=== PATIENT | female | born 1990 | race Caucasian/White ===

== ENCOUNTER 2018-04-21 16:40 | Emergency (ER) | payer OTHER ==
[~2018-04-21] VITALS: Ht 170.2 cm; Wt 72.0 kg
[2018-04-21 17:09] VITALS: BP 123/75; PULSE 94; RESP 17; TEMP 98.2; O2SAT 100
[2018-04-21] MEDS ORDERED: LIDOCAINE HCL 2% 50 ML VIAL INFIL ONE (17:45)
[2018-04-21] MEDS ORDERED: oxyCODONE/ACETAMINOPHEN 5 MG/325 MG TAB PO ONE (17:45)
[2018-04-21] MEDS ORDERED: TETANUS/DIPHTHERIA TOXOID ADULT 0.5 ML VIAL IM ONE (17:45)
--- NOTE | 2018-04-21 18:11 | PD ---
Data Data Last Documented VS Vital Signs Date Time Temp Pulse Resp B/P (MAP) Pulse Ox O2 Delivery O2 Flow Rate FiO2 04/21/18 19:52 91 18 117/82 (94) 100 04/21/18 17:[address] Facial Bones W/O Iv Cont (04/21/18 ) Ct Brain W/O Iv Contrast(Rout) (04/21/18 ) Ed Urine Pregnancytest Poc (04/21/18 17:33) Lidocaine 2% Inj (Xylocaine 2% Inj) (04/21/18 17:45) Tetanus/Diphtheria Tox Adult (Tetanus/Di (04/21/18 17:45) Oxycodone-Acetamin 5-325 Mg (Percocet (04/21/18 17:45) Ed Discharge Order (04/21/18 19:46) MDM Supervised Visit with VERONICA: Yes Narrative Course I, Dr. Nunez, have reviewed the advance practice practitioner's documentation and am in agreement, met with the patient face to face, made the diagnosis, and the medical decision making was done by me. *My assessment and Findings: Patient seen and examined by me in addition to Noa Edgar, the patient appears well appears to have a very minor head trauma, laceration was very cleanly approximated by Ms. Jolley. CT examinations negative. She is stable for discharge Last [address] 04/21/18 0000 Signed Impressions: Mucoperiosteal thickening is seen in both maxillary sinuses and posterior ethmo ids extending into the left frontal sinus. Soft tissue swelling about the left orbit without fracture. Zygomatic arch is intact. Mandible and maxilla are inta ct. CONCLUSION: 1. Apparent chronic sinus disease without fracture Head CT 04/21/18 0000 Signed Impressions: CONCLUSION: 1. Negative, facial bone CT pending. Scripts Amoxicillin-Clavulanate (Augmentin) 875-125 Mg Tab 1 TAB PO BID for Infection, #20 TAB 0 Refills Prov: Juan Nunez MD 04/21/18 Acetaminophen-Codeine (Tylenol-Codeine #3) 300-30 mg Tab 1 TAB PO Q4H Y for PAIN, #12 TAB 0 Refills Prov: Noa Jolley DIRECTOR E LEARNING 04/21/18 Juan Nunez MD Apr 21, 2018 18:11
[2018-04-21] MEDS ORDERED: TYLETAB34 PO (18:35)
--- NOTE | 2018-04-21 18:35 | PD ---
HPI Chief Complaint: Laceration/Skin Injury Time Seen by Provider: 17:19 Travel History International Travel<30 days: No Contact w/Intl Traveler<30days: No Traveled to known affect area: No History of Present Illness HPI Patient is a 28-year-old female presenting to the emergency department for evaluation of a head injury. Patient states she slipped getting out of the shower, she fell hitting her head on the floor, she reports a brief loss of consciousness, less than 30 seconds. She states her found her and helped her up. She presents with 5 out of 10 pain to her face. She has 2 lacerations, one to her left upper eyelid and one to her left lower lip. She denies any nausea, dizziness, visual changes. Patient denies any neck pain, back pain, chest pain. She denied feeling dizzy or short of breath prior to falling. She denies any significant past medical history. To him onset was sudden, symptoms are moderate in nature. There are no alleviating factors. PFSH Past Medical History Medical History: Denies Significant Hx Immunizations Current: Yes ?: Not Past Surgical History Section: Yes Social History Alcohol Use: No Tobacco Use: No Substance Use: No Allergies-Medications (Allergen,Severity, Reaction): Coded Allergies: No Known Allergies (Unverified , 04/21/18) Reported Meds & Prescriptions Reported Meds & Active Scripts Active Augmentin (Amoxicillin-Clavulanate) 875-125 Mg Tab 1 Tab PO BID Tylenol-Codeine #3 (Acetaminophen-Codeine) 300-30 mg Tab 1 Tab PO Q4H PRN Review of Systems Except as stated in HPI: all other systems reviewed are Neg HENT: No: Headaches, Neck Pain Cardiovascular: No: Chest Pain or Discomfort Respiratory: No: Shortness of Breath Gastrointestinal: No: Nausea, Abdominal Pain Musculoskeletal: Positive: Edema, Pain Skin: Positive Change in Pigmentation Physical Exam Narrative GENERAL: Well-developed, well-nourished, alert female. Presenting in no acute distress. SKIN: Warm and dry. 2 cm superficial laceration to left upper eyelid, 0.5 cm laceration to the left lower lip HEAD: Edema and mild ecchymosis noted to the left cheek. Normocephalic. EYES: Pupils equal and round. No scleral icterus. No injection or drainage. ENT: No nasal bleeding or discharge. Mucous membranes pink and moist. NECK: Trachea midline. No JVD. CARDIOVASCULAR: Regular rate and rhythm. RESPIRATORY: No accessory muscle use. Clear to auscultation. Breath sounds equal bilaterally. GASTROINTESTINAL: Abdomen soft, non-tender, nondistended. Hepatic and splenic margins not palpable. MUSCULOSKELETAL: Extremities without clubbing, cyanosis, or edema. No obvious deformities. NEUROLOGICAL: Awake and alert. No obvious cranial nerve deficits. Motor grossly within normal limits. Five out of 5 muscle strength in the arms and legs. Normal speech. PSYCHIATRIC: Appropriate mood and affect; insight and judgment normal. Data Data Last Documented VS Vital Signs Date Time Temp Pulse Resp B/P (MAP) Pulse Ox O2 Delivery O2 Flow Rate FiO2 04/21/18 19:52 91 18 117/82 (94) 100 04/21/18 17:[address] Facial Bones W/O Iv Cont (04/21/18 ) Ct Brain W/O Iv Contrast(Rout) (04/21/18 ) Ed Urine Pregnancytest Poc (04/21/18 17:33) Lidocaine 2% Inj (Xylocaine 2% Inj) (04/21/18 17:45) Tetanus/Diphtheria Tox Adult (Tetanus/Di (04/21/18 17:45) Oxycodone-Acetamin 5-325 Mg (Percocet (04/21/18 17:45) Ed Discharge Order (04/21/18 19:46) [facility] Medical Decision Making Medical Screen Exam Complete: Yes Emergency Medical Condition: Yes Interpretation(s) Vital Signs Date Time Temp Pulse Resp B/P (MAP) Pulse Ox O2 Delivery O2 Flow Rate FiO2 04/21/18 17:09 98.2 94 17 123/75 (91) 100 Differential Diagnosis Contusion versus concussion versus hemorrhage versus laceration versus abrasion versus other Narrative Course Patient is well-appearing 28-year-old female presenting for evaluation after she sustained a mechanical fall getting out of the shower. Patient has no focal deficits on exam. Please see procedure report for laceration repairs. CT of the brain and facial bones are pending. Patient was given Percocet for pain. CT scans of the brain and facial bones are pending. Patient is resting comfortably, care of patient transferred to Ziyad DAVIES, he will determine patient's disposition. Procedures Procedure Narrative LACERATION LOCATION: Left upper eyelid LENGTH: 2 cm NUMBER OF STITCHES/AMANDA: 7 stitches REPAIR: The area of the laceration was prepped with Betadine and sterilely draped. The laceration was infiltrated with 1% lidocaine. The wound was copiously irrigated and explored without evidence of foreign body, tendon injury or neurovascular injury. The wound was closed using 6-0 Prolene. This was a 1 layer repair. A sterile dressing was applied. The patient was advised to keep the dressing clean and dry. Patient tolerated the procedure well. LACERATION LOCATION: Left lower lip LENGTH: 1 cm NUMBER OF STITCHES/AMANDA: 2 stitches REPAIR: The area of the laceration was prepped with Betadine and sterilely draped. The laceration was infiltrated with 1% lidocaine. The wound was copiously irrigated and explored without evidence of foreign body, tendon injury or neurovascular injury. The wound was closed using 6-0 Prolene. This was a 1 layer repair. A sterile dressing was applied. The patient was advised to keep the dressing clean and dry. Patient tolerated the procedure well. Diagnosis Primary Impression: Face lacerations Qualified Codes: S01.81XA - Laceration without foreign body of other part of head, initial encounter Additional Impressions: Fall Qualified Codes: W19.XXXA - Unspecified fall, initial encounter Facial contusion Qualified Codes: S00.83XA - Contusion of other part of head, initial encounter Referrals: Primary Care Physician 1 week Patient Instructions: Care For Your Stitches (ED), Facial Contusion (ED), Facial Laceration (ED), General Instructions Additional Instructions: Stitches will need to be removed in 1 week Keep stitches clean and dry, you may wash her face with soap and water, do not submerge face and water, swimming pools or the ocean until stitches are healed Return to emergency department immediately for any new or worsening symptoms Take medication as needed and as directed for pain Do not drive or operate machinery while taking narcotic pain medication Med/Other Pt SpecificInfo: Prescription(s) given Scripts Amoxicillin-Clavulanate (Augmentin) 875-125 Mg Tab 1 TAB PO BID for Infection, #20 TAB 0 Refills Prov: Juan Nunez MD 04/21/18 Acetaminophen-Codeine (Tylenol-Codeine #3) 300-30 mg Tab 1 TAB PO Q4H Y for PAIN, #12 TAB 0 Refills Prov: Noa Jolley 04/21/18 Disposition: 01 DISCHARGE HOME Condition: Stable Noa Jolley Apr 21, 2018 18:35
--- NOTE | 2018-04-21 19:29 | RADRPT ---
EXAM DATE: 04/21/2018 7:08 PM EDT AGE/SEX: 28 years / Female INDICATIONS: Trauma, fall. CLINICAL DATA: This is the patient's initial encounter. Patient reports that signs and symptoms have been present for 1 day and indicates a pain score of 5/10. MEDICAL/SURGICAL HISTORY: None. section. RADIATION DOSE: 36.52 CTDI (mGy) COMPARISON: No prior exams available for comparison. TECHNIQUE: CT of the head without contrast. Using automated exposure control and adjustment of the mA and/or kV according to patient size, radiation dose was kept as low as reasonably achievable to ob tain optimal diagnostic quality images. FINDINGS: Cerebrum: The ventricles are normal for age. No evidence of midline shift, mass lesion, hemorrhage or acute infarction. No extraaxial fluid collections are seen. Posterior Fossa: The cerebellum and brainstem are intact. The 4th ventricle is midline. The cerebe llopontine angle is unremarkable. Extracranial: The visualized portion of the orbits is intact. Skull: The calvaria is intact. No evidence of skull fracture. CONCLUSION: 1. Negative, facial bone CT pending. Electronically signed by: Dony Kuhn MD 04/21/2018 7:27 PM EDT
--- NOTE | 2018-04-21 19:33 | RADRPT ---
EXAM DATE: 04/21/2018 7:14 PM EDT AGE/SEX: 28 years / Female INDICATIONS: Trauma, fall, Laceration to left outer eye. CLINICAL DATA: This is the patient's initial encounter. Patient reports that signs and symptoms have been present for 1 day and indicates a pain score of 8/10. MEDICAL/SURGICAL HISTORY: None. section. RADIATION DOSE: 17.54 CTDI (mGy) COMPARISON: No prior exams available for comparison. TECHNIQUE: Contiguous images in the axial and coronal planes were obtained using helical multirow de tector technique. Using automated exposure control and adjustment of the mA and/or kV according to p atient size, radiation dose was kept as low as reasonably achievable to obtain optimal diagnostic price lity images. FINDINGS: Mucoperiosteal thickening is seen in both maxillary sinuses and posterior ethmoids extending into the left frontal sinus. Soft tissue swelling about the left orbit without fracture. Zygomatic arch is in tact. Mandible and maxilla are intact. CONCLUSION: 1. Apparent chronic sinus disease without fracture Electronically signed by: Dony Kuhn MD 04/21/2018 7:32 PM EDT
[2018-04-21] MEDS ORDERED: AUGM875T3 PO (19:45)
--- NOTE | 2018-04-21 19:49 | PD ---
Physical Exam Date Seen by Provider: Apr 21, 2018 Time Seen by Provider: 19:47 Data Data Last Documented VS Vital Signs Date Time Temp Pulse Resp B/P (MAP) Pulse Ox O2 Delivery O2 Flow Rate FiO2 04/21/18 17:09 98.2 94 17 123/75 (91) [address] Facial Bones W/O Iv Cont (04/21/18 ) Ct Brain W/O Iv Contrast(Rout) (04/21/18 ) Ed Urine Pregnancytest Poc (04/21/18 17:33) Lidocaine 2% Inj (Xylocaine 2% Inj) (04/21/18 17:45) Tetanus/Diphtheria Tox Adult (Tetanus/Di (04/21/18 17:45) Oxycodone-Acetamin 5-325 Mg (Percocet (04/21/18 17:45) Ed Discharge Order (04/21/18 19:46) [facility] Medical Record Reviewed: Yes Supervised Visit with VERONICA: Yes Interpretation(s) Last [address] 04/21/18 0000 Signed Impressions: Mucoperiosteal thickening is seen in both maxillary sinuses and posterior ethmo ids extending into the left frontal sinus. Soft tissue swelling about the left orbit without fracture. Zygomatic arch is intact. Mandible and maxilla are inta ct. CONCLUSION: 1. Apparent chronic sinus disease without fracture Head CT 04/21/18 0000 Signed Impressions: CONCLUSION: 1. Negative, facial bone CT pending. Differential Diagnosis At [facility]: High Differential diagnoses: Fracture, sprain, strain, dislocation, contusion, neurovascular injury Narrative Course The CAT scan of the facial bones and had are negative. For trauma for trauma. Patient does have sinus disease. The patient is medically cleared. She will be discharged home on Augmentin and something for pain Diagnosis Primary Impression: Face lacerations Qualified Codes: S01.81XA - Laceration without foreign body of other part of head, initial encounter Additional Impressions: Facial contusion Qualified Codes: S00.83XA - Contusion of other part of head, initial encounter Fall Qualified Codes: W19.XXXA - Unspecified fall, initial encounter Referrals: Primary Care Physician 1 week Patient Instructions: General Instructions, Care For Your Stitches (ED), Facial Contusion (ED), Facial Laceration (ED) Additional Instruction: Stitches will need to be removed in 1 week Keep stitches clean and dry, you may wash her face with soap and water, do not submerge face and water, swimming pools or the ocean until stitches are healed Return to emergency department immediately for any new or worsening symptoms Take medication as needed and as directed for pain Do not drive or operate machinery while taking narcotic pain medication Med/Other Pt SpecificInfo: Prescription(s) given Scripts Amoxicillin-Clavulanate (Augmentin) 875-125 Mg Tab 1 TAB PO BID for Infection, #20 TAB 0 Refills Prov: Juan Nunez MD 04/21/18 Acetaminophen-Codeine (Tylenol-Codeine #3) 300-30 mg Tab 1 TAB PO Q4H Y for PAIN, #12 TAB 0 Refills Prov: Noa Jolley 04/21/18 Disposition: 01 DISCHARGE HOME Condition: Stable Ziyad Nair Apr 21, 2018 19:49
[2018-04-21 19:52] VITALS: BP 117/82
== END 2018-04-21 20:01 | disposition home or self-care (01) ==
LOC: NEPD 16:40
DX: S01.112A Laceration without foreign body of left eyelid and periocular area, initial encounter (principal); S01.511A Laceration without foreign body of lip, initial encounter; W01.0XXA Fall on same level from slipping, tripping and stumbling without subsequent striking against object, initial encounter; Y93.E1 Activity, personal bathing and showering; Z23 Encounter for immunization
CPT/HCPCS: 12013; 70450; 70486; 84703; 90471; 90714